=== PATIENT | female | born 1970 | race Two or more races ===

== ENCOUNTER 2016-09-17 12:33 | Inpatient (IN) | payer MEDICAID ==
[2016-09-17] VITALS (8 sets, daily range): BP systolic 113–130; BP diastolic 67–75
[~2016-09-17] VITALS: Ht 157.5 cm; Wt 89.2 kg
[2016-09-17 13:39] LABS: Urine Bilirubin Negative (Negative); Urine Blood 1+ /uL (Negative); Urine Color Yellow (Yellow); Urine Glucose Normal (Normal); Urine Ketone Negative (Negative); Urine Nitrite Negative (Negative); Urine RBC 1 /hpf (0 - 4); Urine Squamous Epithelial Cell FEW /hpf (<5); Urine Urobilinogen Normal (Negative)
[2016-09-17 13:56] LABS: Basophils # (auto) 0 uL; DEFINITIVE VIEW TRANSMISSION; Eosinophils # (auto) 0.1 uL; Eosinophils % (auto) 1.8 % (0.0-7.0); Hematocrit 22.4 % (36.0-46.0); Mean Corpuscular Hemoglobin 15.6 pg (28.0-32.0); Mean Corpuscular Hgb Conc. 28.9 g/dL (32.0-36.0); Mean Corpuscular Volume 53.9 fL (80.0-100.0); Mean Platelet Volume 9.7 fL (7.4-10.4); Monocytes # (auto) 0.4 uL; Monocytes % (auto) 9.9 % (0.0-12.0); Neutrophils # (auto) 2.5 uL; Neutrophils % (auto) 62.3 % (37.0-80.0); Platelet Count (auto) 411 10^3/uL (140-450); SUSPECT VIEW TRANSMISSION
[2016-09-17 14:14] LABS: INR 0.94 (0.9-1.15); Partial Thromboplastin Time 22.4 sec (22.64-33.71); Prothrombin Time 10.2 sec (9.37-12.3)
[2016-09-17 14:24] LABS: Albumin 3.9 g/dL (3.4-5.0); BUN/Creatinine Ratio 11.9; Bilirubin, Total 0.2 mg/dL (0.2-1.0); Calcium 8.5 mg/dL (8.5-10.1); Potassium 4.1 mmol/L (3.5-5.1); Total Protein 7.9 g/dL (6.4-8.2)
[2016-09-17 14:28] LABS: Red Cell Distribution Width 23.1 % (11.6-16.0)
[2016-09-17 14:31] LABS: Hemoglobin 6.5 g/dL (12.2-16.2)
[2016-09-17 17:19] LABS: Anisocytosis Moderate; Giant Platelets Few; Hypochromia Marked; Microcytosis Marked; Ovalocytes FEW; Platelet Estimate Adequate; Tear Drop Cells FEW
[2016-09-17] MEDS ORDERED: NITROFURANTOIN (MONO) 100 mg CAP PO ONE (17:30)
[2016-09-17] MEDS ORDERED: MORPHINE SULF INJ 2 MG/ML SYRINGE 1ML IV PRN ×2 (19:30)
[2016-09-17] MEDS ORDERED: DOCUSATE SOD 100 MG CAP PO PRN (19:30)
[2016-09-17] MEDS ORDERED: NITROGLYCERIN 0.4 MG SL TAB SL PRN (19:30)
[2016-09-17] MEDS ORDERED: HYDROcodone-ACET 5/325MG TAB PO PRN (19:30)
[2016-09-17] MEDS ORDERED: ACETAMINOPHEN 325 MG TAB PO PRN (19:30)
[2016-09-17] MEDS ORDERED: ONDANSETRON HCL 4 MG/2 ML VIAL IV PRN (19:30)
[2016-09-17] MEDS ORDERED: TEMAZEPAM 15 MG CAP PO PRN (19:30)
[2016-09-17] MEDS ORDERED: cefTRIAXone 1GM/50ML D5W 50 ML IV ONE (19:30)
[2016-09-17] MEDS: SODIUM CHLORIDE 0.9% 1,000 ML IV SCH (20:55)
[2016-09-17] MEDS: MULTIPLE VITAMIN TAB PO SCH (20:57)
[2016-09-18 00:30] VITALS: BP 107/71
[2016-09-18 02:20] VITALS: BP 104/70
[2016-09-18 03:00] VITALS: BP 102/68
[2016-09-18 05:00] VITALS: BP 111/75
[2016-09-18 06:47] LABS: Albumin 3.4 g/dL (3.4-5.0); BUN/Creatinine Ratio 12.7; Bilirubin, Total 0.4 mg/dL (0.2-1.0); Calcium 8.5 mg/dL (8.5-10.1); Potassium 3.8 mmol/L (3.5-5.1)
[2016-09-18 07:04] LABS: Basophils # (auto) 0 uL; Basophils % (auto) 0.2 % (0.0-2.0); DEFINITIVE VIEW TRANSMISSION; Eosinophils # (auto) 0.1 uL; Eosinophils % (auto) 2.1 % (0.0-7.0); Hematocrit 26.8 % (36.0-46.0); Hemoglobin 8.1 g/dL (12.2-16.2); Lymphocytes # (auto) 1.7 uL; Mean Corpuscular Hemoglobin 18.5 pg (28.0-32.0); Mean Corpuscular Hgb Conc. 30.2 g/dL (32.0-36.0); Mean Corpuscular Volume 61.3 fL (80.0-100.0); Mean Platelet Volume 10.4 fL (7.4-10.4); Monocytes # (auto) 0.4 uL; Monocytes % (auto) 10.5 % (0.0-12.0); Neutrophils % (auto) 47.2 % (37.0-80.0); Platelet Count (auto) 325 10^3/uL (140-450); SUSPECT VIEW TRANSMISSION; White Blood Cell 4.2 10^3/uL (4.4-10.8)
[2016-09-18] MEDS: MULTIPLE VITAMIN TAB PO SCH (08:47)
[2016-09-18 08:57] VITALS: BP 114/70
[2016-09-18] MEDS ORDERED: cefTRIAXone 1GM/50ML D5W 50 ML IV SCH (09:00)
[2016-09-18] MEDS: SODIUM CHLORIDE 0.9% 1,000 ML IV SCH (12:07)
[2016-09-18 12:55] VITALS: BP 112/71
[2016-09-18 14:55] LABS: Anisocytosis Marked; Hypochromia Marked; Microcytosis Marked; Platelet Estimate Adequate
[2016-09-18 14:57] LABS: Burr Cells FEW; Large Platelets FEW; Ovalocytes FEW; Tear Drop Cells FEW
== END 2016-09-18 16:15 | disposition home or self-care (01) | DRG 663 ==
LOC: ER 12:41 → TELE 12:42 → TELE-WESTW 21:06
PROVIDERS: ADMIT Internal Medicine; ATTEND Internal Medicine
PROC: 30233N1 Transfusion of Nonautologous Red Blood Cells into Peripheral Vein, Percutaneous Approach (ICD-10-PCS; principal; 2016-09-17)
DX: D64.9 Anemia, unspecified (principal); N13.30 Unspecified hydronephrosis; N39.0 Urinary tract infection, site not specified; N92.0 Excessive and frequent menstruation with regular cycle; Z82.49 Family history of ischemic heart disease and other diseases of the circulatory system; Z83.3 Family history of diabetes mellitus; Z84.1 Family history of disorders of kidney and ureter
CPT/HCPCS: 36415; 36430; 71010; 76830; 76856; 80053; 81001; 83540; 85025; 85610; 85730; 86850; 86900; 86901; 86920; 87086; J0696